=== PATIENT | female | born 1935 | race Caucasian/White ===

== ENCOUNTER 2019-03-16 18:23 | Inpatient (IN) | payer MEDICARE ==
[~2019-03-16] VITALS: Ht 157.5 cm; Wt 47.6 kg
--- NOTE | 2019-03-16 18:26 | NUR ---
PT WENT TO THE RESTROOM. GAIT IS STABLE. NO S/S OF ACUTE DISTRESS AT THIS TIME. CONTINUE TO MONITOR THE PT.
[2019-03-16] MEDS ORDERED: LOSA50TA39 PO (18:30)
--- NOTE | 2019-03-16 18:49 | NUR ---
PT IS IN ROOM #2A. DR VASQUEZ EVALUATED THE PT.
--- NOTE | 2019-03-16 19:32 | NUR ---
Pt. admitted to [facility] , under care of Dr. Mccauley/Ant Rae. Diagnosis: Psychosis. pt on 5150 hold Belongs List completed. MRSA swab done.
--- NOTE | 2019-03-16 19:35 | NUR ---
Received report from TIAGO Varela for continuity of care.
--- NOTE | 2019-03-16 19:45 | NUR ---
Patient arrived on unit. Patient is awake and oriented to self, time/date & location. Patient is ambulatory, and able to verbalize all needs. No Respiratory distress noted. Pain level 0/10 verbalized by patient. Patient interacting with staff and peers appropriately. Will continue to monitor.
[2019-03-16] MEDS ORDERED: ACETAMINOPHEN 325 MG TABLET PO PRN (20:00)
[2019-03-16] MEDS ORDERED: MAG HYDROX/AL HYDROX/SIMETH 30 ML LIQUID UDC PO PRN (20:00)
[2019-03-16] MEDS ORDERED: MAGNESIUM HYDROXIDE 30 ML LIQUID UDC PO PRN (20:00)
[2019-03-16 21:46] VITALS: BP 147/87
[2019-03-16] MEDS ORDERED: TEMAZEPAM 7.5 MG CAPSULE PO PRN (22:00)
[2019-03-17 07:30] VITALS: BP 159/89
[2019-03-17] MEDS: SERTRALINE HCL 50 MG TABLET PO SCH (12:08)
[2019-03-17] MEDS: LOSARTAN POTASSIUM 50 MG TABLET PO SCH (13:50)
[2019-03-17 16:00] VITALS: BP 151/93
[2019-03-17 20:12] VITALS: BP 139/90
[2019-03-17] MEDS: ATORVASTATIN 10 MG TABLET PO SCH (20:31)
--- NOTE | 2019-03-17 23:49 | NUR ---
RECEIVED PATIENT IN HER BED READING.COMPLIANT WITH STAFF FOR HER CARE AND MEDS.FREQUENT VISITS TO HER ROOM FOR SAFETY.WILL CONTINUE TO MONITOR.
--- NOTE | 2019-03-18 06:31 | NUR ---
SLEPT FOR APPROX.[id number].SHE ACCEPTED TO TAKE A SHOWER.
[2019-03-18 07:30] VITALS: BP 146/97
[2019-03-18 08:17] LABS: BASOPHILS % (AUTO) 0.5 % (0.0-2.0); EOSINOPHILS % (AUTO) 1.7 % (0.0-7.0); HEMATOCRIT 35.8 % (31.2-41.9); HEMOGLOBIN 11.8 g/dL (10.9-14.3); LYMPHOCYTES # (AUTO) 0.6 K/uL (20.0-40.0); LYMPHOCYTES % (AUTO) 24.1 % (20.5-51.5); MEAN CORPUSCULAR HGB CONC 33 g/dL (32.3-35.6); MEAN CORPUSCULAR VOLUME 91.3 fL (75.5-95.3); MONOCYTES # (AUTO) 0.4 K/uL (2.0-10.0); MONOCYTES % (AUTO) 13.7 % (0.0-11.0); NEUTROPHILS # (AUTO) 1.6 K/uL (1.8-8.9); PLATELET COUNT (AUTO) 202 K/uL (179-408); RED BLOOD CELL COUNT(AUTO) 3.92 MIL/uL (3.63-4.92); WHITE BLOOD COUNT (AUTO) 2.7 K/uL (3.8-11.8)
[2019-03-18] MEDS: LOSARTAN POTASSIUM 50 MG TABLET PO SCH (08:33)
[2019-03-18 09:00] LABS: BASOPHILS % (MANUAL) 1 % (0-2); EOSINOPHILS % (MANUAL) 1 % (0-8); LYMPHOCYTES % (MANUAL) 22 % (20-40); MONOCYTES % (MANUAL) 12 % (2-10); NEUTROPHILS % (MANUAL) 64 % (42-75)
[2019-03-18 09:14] LABS: ALANINE AMINOTRANSFERASE 24 U/L (14-59); ALKALINE PHOSPHATASE 36 U/L (50-136); ASPARTATE AMINOTRANSFERASE 19 U/L (15-37); BILIRUBIN,TOTAL 0.4 mg/dL (0.2-1.0); CARBON DIOXIDE 29 mmol/L (21-32); CHLORIDE 107 mmol/L (98-107); CREATININE 0.6 mg/dL (0.6-1.3); GLUCOSE 90 mg/dL (74-106); MAGNESIUM 1.9 mg/dL (1.8-2.4); PHOSPHOROUS 3.7 mg/dL (2.5-4.9); POTASSIUM 3.6 mmol/L (3.5-5.1); TOTAL PROTEIN, SERUM 6.7 g/dL (6.4-8.2); UREA NITROGEN, BLOOD 15 mg/dL (7-18)
[2019-03-18 09:46] LABS: THYROID STIMULATING HORMONE 3.488 mIU/mL (0.358-3.740)
[2019-03-18] MEDS: SERTRALINE HCL 50 MG TABLET PO SCH (12:23)
--- NOTE | 2019-03-18 12:36 | NUR ---
Firearms report: printing worker supervisor completed and submitted a [employer] firearms report for a 5150 DTS certification.
[2019-03-18 15:52] VITALS: BP 144/93
[2019-03-18 20:00] VITALS: BP 138/88
[2019-03-18] MEDS: ATORVASTATIN 10 MG TABLET PO SCH (20:14)
[2019-03-19 07:30] VITALS: BP 144/81
[2019-03-19] MEDS: LOSARTAN POTASSIUM 50 MG TABLET PO SCH (08:38)
[2019-03-19] MEDS: SERTRALINE HCL 50 MG TABLET PO SCH (12:42)
--- NOTE | 2019-03-19 15:26 | NUR ---
Initial Discharge Plan: Patient is a 84 year old female who currently lives alone in her home [[address] [place] [address]]. Patient would like to return there when ready. Patient lacks social support and will need community referrals upon discharge. family preservation caseworker will continue to collaborate with patient and MD on a safe and proper discharge. +
[2019-03-19 15:43] VITALS: BP 168/95
[2019-03-19] MEDS: ATORVASTATIN 10 MG TABLET PO SCH (20:10)
[2019-03-19] MEDS: LORAZEPAM 0.5 MG TABLET PO PRN (20:10)
[2019-03-20 07:30] VITALS: BP 149/86
[2019-03-20] MEDS: LOSARTAN POTASSIUM 50 MG TABLET PO SCH (08:08)
[2019-03-20] MEDS: SERTRALINE HCL 50 MG TABLET PO SCH ×2 (12:23→17:47)
[2019-03-20 16:00] VITALS: BP 135/83
[2019-03-20 19:52] VITALS: BP 129/80
[2019-03-20] MEDS: ATORVASTATIN 10 MG TABLET PO SCH (20:37)
[2019-03-20] MEDS: LORAZEPAM 0.5 MG TABLET PO PRN (20:37)
[2019-03-21 07:30] VITALS: BP 140/85
[2019-03-21] MEDS: LOSARTAN POTASSIUM 50 MG TABLET PO SCH (08:08)
[2019-03-21] MEDS: SERTRALINE HCL 50 MG TABLET PO SCH ×2 (12:33→17:49)
[2019-03-21 16:00] VITALS: BP 141/80
[2019-03-21 19:50] VITALS: BP 131/59
[2019-03-21] MEDS: LORAZEPAM 0.5 MG TABLET PO PRN (20:05)
[2019-03-21] MEDS: ATORVASTATIN 10 MG TABLET PO SCH (20:05)
[2019-03-22 07:30] VITALS: BP 120/83
[2019-03-22 08:41] VITALS: BP 120/83
[2019-03-22] MEDS: LOSARTAN POTASSIUM 50 MG TABLET PO SCH (08:41)
--- NOTE | 2019-03-22 10:01 | NUR ---
DC NOTE: Patient will be discharged back to her home [[address] [place] [address]; ] where she lives alone. Patient will receive transportation by taxi voucher at 2:00pm. Please arrange taxi transportation for this patient. Patient is AxOx3-4, denies suicidal ideations, is able to plan for self-care, and is agreeable to discharge plan. Patient has no family social support, but does have neighbors who help her. Patient refused to have neighbors contacted. Patient will follow-up with Dr. Isabella Burrell [[address], [place] [address]; ] on Monday, April 03, - at 11:00am. Continuing care packet has been faxed to MD office. Patient has also agreed to have home health services including medication management, social work consult, and a nursing evaluation. photographic process worker has faxed referral to [facility] [phone: ; fax: ] and is currently waiting to hear back from admissions department. photographic process worker will update note with more information when received. Patient currently has no psychiatrist, so forensic social worker has provided patient with a list of Medicare-accepting psychiatrists in the [facility]. Patient states she will go over the list with her PCP on April 03. If patient is in need of psychiatric follow-up sooner, he has been provided with a referral to [facility] [ [place] [address]; ] where patient can walk-in for appointment Monday thru Monday anytime between 8:00pm-5:00pm. Patient has also been provided with a mental health resources including [facility] Crisis Line [ ], Griselda Babb [ ], and National Suicide Prevention Lifeline [ ].
[2019-03-22] MEDS: SERTRALINE HCL 50 MG TABLET PO SCH (12:47)
--- NOTE | 2019-03-22 14:14 | NUR ---
1345 DISCHARGED INSTRUCTION GIVEN TO PATIENT REGARDING MEDICATIONS TO CONTINUE AT HOME AND PRESCRIPTION GIVEN , PATIENT VERBALIZED UNDERSTANDING. ALL VALUABLES AND BELONGING GIVEN AND SIGNED 1410 PICKED UP BY [employer] , WITH HOSPITAL VOUCHER AND WENT HOME STABLE. PATIENT DENIES SI/HI. NO DELUSION. NO A/V HALLUCINATION NOTED.
== END 2019-03-22 14:10 | disposition home health service (06) | DRG 885 ==
LOC: ER 18:25 → GPS 19:03
PROVIDERS: ADMIT Psychiatry & Neurology Psychosomatic Medicine; ATTEND Internal Medicine
DX: F29 Unspecified psychosis not due to a substance or known physiological condition (principal); E44.1 Mild protein-calorie malnutrition; Z68.1 Body mass index [BMI] 19.9 or less, adult; F60.9 Personality disorder, unspecified; F10.10 Alcohol abuse, uncomplicated; Y90.9 Presence of alcohol in blood, level not specified; F41.9 Anxiety disorder, unspecified; E78.5 Hyperlipidemia, unspecified; I10 Essential (primary) hypertension; D72.819 Decreased white blood cell count, unspecified; M25.571 Pain in right ankle and joints of right foot; X50.1XXA Overexertion from prolonged static or awkward postures, initial encounter; Y92.89 Other specified places as the place of occurrence of the external cause; F32.9 Major depressive disorder, single episode, unspecified; Z59.9 Problem related to housing and economic circumstances, unspecified
CPT/HCPCS: 36415; 83735; 84100; 84443; 85025; 93005; A4663